=== PATIENT | male | born 1955 | race Caucasian/White ===

== ENCOUNTER 2018-04-08 18:09 | Inpatient (IN) | payer OTHER, SELFPAY ==
[2018-04-08 18:11] VITALS: BP 128/83; PULSE 120; RESP 23; TEMP 36.5; O2SAT 97; BMI 16.7
--- NOTE | 2018-04-08 18:33 | RAD_ITS ---
STUDY: X-RAY CHEST REASON FOR EXAM: Male, 62 years old. Generalized illness. History of lung cancer with metastasis. TECHNIQUE: Single AP portable view of the chest. COMPARISON: None. FINDINGS: Focal opacity of the left costophrenic angle. Otherwise the left lung is generally clear without major consolidation. Negative for substantial pleural effusion. On the right there is a generalized broad area of mass density in the right hilum and right paramediastinal region of the upper chest. There is diffuse mild to moderate opacification of the lung parenchyma in the right upper lobe, right middle lobe and more so at the right lung base. Probable right pleural effusion. Normal size heart. Broad mediastinum. There is atherosclerotic calcification of the aortic arch . Normal visualized thoracic spine. Normal visualized ribs, clavicles, and shoulders. There is no demonstrated abnormality of the visualized soft tissue structures of the upper abdomen. RAD/Chest 1 View (Portable) IMPRESSION: Focal consolidation or pleural-based lesion of the left costophrenic angle. Otherwise the left lung is generally expanded and clear. Mass density of the right hilum, right paramediastinal mass density and a broad mediastinum. Multifocal areas of parenchymal opacification of the right lung more notably at the right lung base and a probable right pleural effusion. Normal cardiac size. Electronically Signed: Agueda Lezama MD at 19:36 EDT , Service support ,
--- NOTE | 2018-04-08 18:37 | ED.VISSUMM ---
- ER Visit Summary Date of Service: 04/08/18 Chief Complaint: [] Generalized weakness, history of cancer with metastases History of Present Illness: The patient is a 62 M [] presents with generalized weakness and dehydration. Patient presents with friend and family member. Family member reports the patient was diagnosed with lung cancer with a history of diastasis to the brain. They report he has not been eating or drinking. He reportedly got his first chemotherapy treatment last week. Patient is a poor historian. He is confused during questioning. He reports mild abdominal pain. No other complaints at this time. Physical Examination: [] 62-year-old cachectic male no acute distress. Tachycardic. Lungs are clear to auscultation. Abdomen is diffuse mild tenderness. No guarding or rebound. No lower extremity edema. Test Results: [] Chest x-ray: Right lung mass consistent with previous images with static presentation. CT abdomen/pelvis without contrast: No signs of obvious obstruction with enlarged pancreas. Labs: White blood cell count elevated 46.9. Sodium low at 126. Alk phos at 1017. ALT 128. AST 222. Lipase 107. Lactic acid 5.0. Emergency Department Course and Treatment: [] Patient given intravenous fluids, Dilaudid, Phenergan. On serial exam had improvement of symptoms. Lab values reveal a elevated lactic acid and transaminases. Case discussed with oncologist, , and hospitalist, Dr. Ho. Patient will be admitted to the general medical floor. Patient is a DNR-CCA. Treatment Plan: [] Admit to general medical floor for fluids, functional decline, treatment of cancer with metastases. Disposition: [] Admit, stable. Impression: [] Lung cancer with metastases Abdominal pain Lactic acidosis DNR-CCA This note was generated with Personal [employer] software. It may contain incorrect words, spelling, and punctuation that were not noted in review of the chart prior to signing ED Disposition - Plan for ED Patient: Chief Complaint: General Illness
[2018-04-08 18:44] LABS: Mean Corp Hgb Conc 34.1 g/gl (32-36); Mean Corpuscular Hgb 29.2 pg (27.0-32.0); Mean Corpuscular Volume 85.6 fL (80-94); Mean Platelet Vol. 10.6 fl (6.2-12.0); Platelet Count 140 K/mm3 (150-450); RBC Distribution Width CV 14.5 % (11.6-14.6); RBC Distribution Width SD 44.7 fl (35.1-43.9); Red Blood Count 4.79 M/mm3 (4.6-6.2)
[2018-04-08 18:45] LABS: Differential Indicated MANUAL DIFF; POSITIVE COUNT YES; POSITIVE DIFFERENTIAL YES; POSITIVE MORPHOLOGY YES
[2018-04-08 18:47] LABS: White Blood Count 46.9 K/mm3 (4.4-11.0)
--- NOTE | 2018-04-08 18:48 | ED.RN ---
PT WBC 46.9. DR RESTREPO
[2018-04-08] MEDS: HYDROmorphone 1 MG/ML Syringe IV (18:50)
[2018-04-08] MEDS: 0.9% Normal Saline 1,000 ML 999 ML IV ×3 (18:50→23:43)
[2018-04-08] MEDS: proMETHazine 25 MG/ML Syringe 6.25 MG IV (18:50)
--- NOTE | 2018-04-08 19:00 | CT_ITS ---
STUDY: CT ABDOMEN AND PELVIS WITHOUT CONTRAST REASON FOR EXAM: Male, 62 years old. Abdominal pain and weakness. History of lung cancer with metastasis to the brain, lymph nodes and bone. RADIATION DOSAGE (If Supplied By Facility): CTDIvol = ( 6.04 ) mGy, DLP = ( 323.17 ) mGycm TECHNIQUE: Transaxial images were obtained from the dome of the diaphragm to the symphysis pubis without oral contrast, and without intravenous contrast. Sagittal and coronal images were reconstructed. Individualized dose optimization techniques were used for this CT. COMPARISON: None. FINDINGS: Moderate-sized dependent right pleural effusion. Loculated fluid collection in the oblique fissure. Parenchymal consolidation of the lateral left lower lobe, pleural-based without a substantial left pleural effusion. 5 mm nodule of the lingula. Hepatomegaly with extensive metastatic disease. Normal gallbladder and extrahepatic biliary system. Normal spleen. The pancreas appears diffusely enlarged or is not separable from the marked adenopathy of the upper abdomen and retroperitoneum. The right adrenal gland is not visualized as a normal structure. Probable mass density of the left adrenal gland. 1.3 cm low-density lesion of the right kidney. Otherwise normal right kidney without hydronephrosis or stones. Normal left kidney without hydronephrosis or stones. Nondistended stomach. Nondistended small bowel. Nonspecific moderate increase in colonic bowel gas in nondependent loops. The appendix is visualized and appears normal. There is diffuse atherosclerotic calcification of the abdominal aorta, without a demonstrated aneurysm. Normal inferior vena cava. Retroperitoneal adenopathy including soft tissue nodules in the posterior retroperitoneum/pararenal spaces. Normal urinary bladder. Generalized anasarca and moderate ascites. There appears to be a healing fracture of the right superior pubic ramus at the anterior acetabulum, possibly pathologic. CT/Abdomen/Pelvis without Cont IMPRESSION: Somewhat limited study in this cachectic patient with little or no intrinsic fat, oral or IV contrast. Moderate size dependent right pleural effusion and fluid in the oblique fissure. Irregular parenchymal consolidation of the lateral segment of the left lower lobe, possibly metastatic involvement. 5 mm nodule of the lingula. Hepatomegaly with extensive metastatic disease. The pancreas appears to be generally enlarged or is inseparable from extensive upper abdominal and retroperitoneal adenopathy including nodules in the posterior retroperitoneum and pararenal spaces. Mesenteric adenopathy not excludable. Nonvisualized right adrenal gland. Mass density of the left adrenal gland likely to be metastatic disease. Normal size kidneys without hydronephrosis or stones. Probable small cyst of the right kidney. Nondistended stomach without evidence of small bowel or colonic obstruction. Nonspecific moderate increase in colonic bowel gas in nondependent loops. A normal air-filled appendix is identified. Nondistended urinary bladder. There appears to be a lesion of the base of the right superior pubic ramus at the anterior acetabulum which looks like a healing fracture, possibly pathologic. Otherwise grossly negative for osteolytic bone lesions. Electronically Signed: Agueda Lezama MD at 20:18 EDT , Service support ,
[2018-04-08 19:05] LABS: Eosinophil 9 % (0-5); Lymphocyte 7 % (19-41); Metamyelocyte 3 % (0-1); Myelocyte 1 (0-0); Neutrophil-Band 26 % (0-5); Total Cells Counted 100 (MANUAL DIFF)
[2018-04-08 19:07] LABS: Differential Comment SEE COMMENTS; Monocyte 8 % (0-10); Neutrophil-Segmented 46 % (47-70)
[2018-04-08 19:10] LABS: Absolute Lymphocyte Count 3.28 X10^3/ul (0.83-4.51); Absolute Neutrophil Count 33.8 X10^3/uL (2.0-7.7); Platelet Estimate ADEQUATE (ADEQ)
[2018-04-08 19:11] LABS: Toxic Granulation 2+
[2018-04-08 19:12] LABS: Anisocytosis RARE; Ovalocyte RARE
[2018-04-08 19:25] LABS: ALB/GLOB Ratio 0.5 RATIO (0.9-2.4); AST(SGOT) 222 U/L (15-37); Alanine Aminotransfer ALT/SGPT 128 U/L (16-61); Alkaline Phosphatase 1017 U/L (45-117); Anion Gap 12 (5-15); BUN 22 mg/dL (7-18); BUN/Creat Ratio 25.1 RATIO (10-20); Calcium,Total 8.4 mg/dL (8.5-10.1); Chloride 90 mmol/L (98-107); Creatinine, Serum 0.88 mg/dL (0.70-1.30); EST Glomerular Filtration Rate 93 mL/min (>60); Est Glom Filt Rate - Afr Amer 113 mL/min (>60); Estimated Creatinine Clearance 60.64 ml/min; Glucose 140 mg/dL (74-106); Lipase 107 U/L (73-393); Potassium 4.8 mmol/L (3.5-5.1); Sodium Level 126 mmol/L (136-145)
--- NOTE | 2018-04-08 19:38 | ED.RN ---
LAB CALLED WITH CRITICAL LAB RESULTS. LACTIC ACID 5.0. DR. ALVARADO MADE AWARE. NO NEW ORDERS AT THIS TIME
[2018-04-08 20:10] VITALS: BP 99/73; PULSE 112; RESP 15; TEMP 37.1; O2SAT 94
--- NOTE | 2018-04-08 20:55 | PCM.HP.STD ---
Problem List (1) Metastatic lung cancer (metastasis from lung to other site) Status: Acute (2) Lactic acid acidosis Status: Acute (3) Abdominal pain Status: Acute History of Present Illness Date of Admission: 04/08/18 Chief Complaint: Generalized weakness The patient is a 62 year old male w/ h/o lung cancer with mets admitted for generalized weakness. He is a poor historian and was recently diagnosed with lung cancer with mets to the brain and abdominal area. He had chemo last week but after treatment, he had poor PO intake. He has not been able to care for himself at home. He has been getting weaker. His weakness is constant and severe. Nothing made his weakness better or worse. He also has been having abdominal pain. Pain is constant and dull aching. No radiation of pain. He went to ED for further workup. Past Medical History Allergies No Known Allergies Allergy (Verified 04/08/18 18:16) Home Medications: Ambulatory Orders Medication Instructions Recorded Fluconazole 100 mg PO DAILY 04/08/18 Levetiracetam [Spritam] 1,000 mg PO BID 04/08/18 Morphine Sulfate [Morphine Sulfate 15 mg PO BID 04/08/18 ER] Lives: Friends Smoking Status: Former smoker Alcohol: None Drugs: None - *Family History Maternal History Items: No pertinent history Review of Systems Constitutional: Reports: Anorexia, Weakness, Fatigue. Denies: Chills, Fever, Weight Change HEENT: Denies: Head Aches, Sinus Congestion, Sinus Drainage Cardiovascular: Denies: Chest Pain, Palpitations Respiratory: Denies: Cough, Shortness of breath at rest, Sputum production Gastrointestinal: Reports: Abdominal Pain. Denies: Nausea, Vomiting Genitourinary: Denies: Dysuria Musculoskeletal: Denies: Joint Pain, Joint Tenderness Skin: Denies: Rash, Wounds Neurological: Denies: Numbness, Tingling, Focal weakness Psychiatric: Denies: Anxiety, Depression, Homicidal Ideations, Suicidal Ideations Hematologic/ Lymphatic: Denies: Easy Bruising, Easy Bleeding VTE Information - Inpt Only VTE Present on Admission: No VTE Mechan Device Prophylaxis: SCD's VTE Pharm Prophylaxis ordered?: Yes Patient Problems: Active and Suspected Problems Metastatic lung cancer (metastasis from lung to other site) (Acute) Lactic acid acidosis (Acute) Abdominal pain (Acute) - Physical Exam General: Alert, Oriented x3, Cooperative HEENT: Atraumatic, PERRLA, EOMI, Normocephalic Neck: Supple, No JVD, Negative Carotid Bruits Lungs: Clear to auscultation, Normal air movement Cardiovascular: Regular rate, No murmurs Abdomen: Bowel Sounds Present, Soft, Non Tender Extremities: No edema, Capillary Refill Less than 3 Seconds Skin: No rashes, No breakdown Musculoskeletal: No Tenderness to Palpation of Joints or Extremities Neurological: Cranial nerves II-XII grossly intact Psych/Mental Status: Normal Affect, Appropriate Vital Signs Temp Pulse Resp BP Pulse Ox 98.8 F 112 H 15 99/73 94 04/08/18 20:10 04/08/18 20:10 04/08/18 20:10 04/08/18 20:10 04/08/18 20:10 Oxygen Flow Rate (L/min) 4 Oxygen Delivery Method Nasal Cannula Weight: 49.895 kg Body Mass Index (BMI) 16.7 Laboratory Tests Past 24 Hrs 04/08/18 04/08/18 04/08/18 18:22 18:22 18:46 WBC 46.9 H* RBC 4.79 Hgb 14.0 Hct 41.0 MCV 85.6 MCH 29.2 MCHC 34.1 RDW 14.5 RDW Differential 44.7 H Plt Count 140 L MPV 10.6 Neut % (Auto) Not Reportable Absolute Neuts (auto) 33.8 H Absolute Lymphs (auto) 3.28 Total Counted 100 Neutrophils % (Manual) 46 L Band Neutrophils % 26 H Lymphocytes % (Manual) 7 L Monocytes % (Manual) 8 Eosinophils % (Manual) 9 H Metamyelocytes % 3 H Myelocytes % 1 H Differential Comment SEE COMMENTS Diff Path Review May foll Toxic Granulation 2+ Platelet Estimate ADEQUATE Anisocytosis RARE Ovalocytes RARE Sodium 126 L Potassium 4.8 Chloride 90 L Carbon Dioxide 24.0 Anion Gap 12 BUN 22 H Creatinine 0.88 Estim Creat Clear Calc 60.64 Est GFR (MDRD) Af Amer 113 Est GFR (MDRD) Non-Af 93 BUN/Creatinine Ratio 25.1 H Glucose 140 H Lactic Acid 5.0 H* Calcium 8.4 L Total Bilirubin 1.10 H AST 222 H ALT 128 H Alkaline Phosphatase 1017 H Total Protein 6.0 L Albumin 2.0 L Globulin 4.0 Albumin/Globulin Ratio 0.5 L Lipase 107 Assessment/Plan Active and Suspected Problems Metastatic lung cancer (metastasis from lung to other site) (Acute) Lactic acid acidosis (Acute) Abdominal pain (Acute) 62 year old male w/ h/o lung cancer with mets admitted for generalized weakness. 1) Generalized weakness: Most likely secondary to lung cancer with mets and chemo. Supportive care. Hydration. 2) NSTEMI: Trop 1.8 Possible type II OR secondary to hypotension. Will hold betablocker. Hold statin as well given concerning for transaminitis. Will start heparin gtt. Will follow trops. Will consult cards. 3) Leukocytosis: Possible paraneoplastic leukemoid reaction vs chemo. No e/o infection at this time. Lactic acidosis improving. Will get cultures. Monitor. 4) Lactic acidosis: Improving. Hydration. Supportive care. 5) Prophylaxis: SCD / heparin
[2018-04-08 21:59] VITALS: BMI 16.9
[2018-04-08 22:10] VITALS: BMI 17.0
[2018-04-08 22:12] VITALS: BP 86/62; PULSE 119; RESP 24; TEMP 36.8; O2SAT 95
[2018-04-08 22:43] VITALS: PULSE 125
[2018-04-08 22:59] LABS: Reflex Lactate? Y
[2018-04-08] MEDS: 0.9% NaCl Peripheral Flush Adult/Peds IV (23:03)
[2018-04-08] MEDS: 0.9% Normal Saline 1,000 ML 150 ML IV (23:03)
[2018-04-08] MEDS: morphine SR 15 MG Tablet PO (23:29)
[2018-04-08] MEDS: Magnesium Hydroxide 30 ML UDC PO (23:29)
[2018-04-08 23:40] VITALS: O2SAT 93
[2018-04-08] MEDS: levETIRAcetam Oral Solution 500 MG/5 ML 1000 MG PO (23:43)
[2018-04-08 23:47] LABS: Lactic Acid 3.4 mmol/L (0.4-2.0)
[2018-04-09] VITALS (11 sets, daily range): BP systolic 102–119; BP diastolic 67–74; PULSE 85–117; RESP 20–26; TEMP 36.3–37.2; O2SAT 95–97
[2018-04-09] MEDS: 0.9% Normal Saline 1,000 ML 999 ML IV (00:50)
--- NOTE | 2018-04-09 01:20 | EKG12_ITS ---
Test Reason : AM EKG Blood Pressure : / mmHG Vent. Rate : 112 BPM Atrial Rate : 112 BPM P-R Int : 112 ms QRS Dur : 134 ms QT Int : 364 ms P-R-T Axes : 067 109 045 degrees QTc Int : 496 ms Sinus tachycardia with Premature supraventricular complexes Right bundle branch block Abnormal ECG Confirmed by JENY BENSON, RITA ([id number]), food editor BRITTA HARRIS ([id number]) on 04/18/2018 3:24:54 PM Referred By: XUAN Confirmed By:RITA FERMIN MD
--- NOTE | 2018-04-09 01:58 | NURSING ---
Made aware by another RN that pt was having chest pain, that RN contacted the DR, see orders.
[2018-04-09] MEDS: 0.9% NaCl Peripheral Flush Adult/Peds IV (02:07)
[2018-04-09] MEDS: Morphine 4 MG/ML Syringe 2 MG IV ×3 (02:10→12:14)
--- NOTE | 2018-04-09 02:52 | NURSING ---
Report called to PCU. Patient being transferred at this time, Troponin came back at 1.8
--- NOTE | 2018-04-09 03:19 | NURSING ---
patient states cp is subsiding, unable to give RN answer on how it feels or rate it.
[2018-04-09] MEDS: Aspirin 325 MG Tablet PO (03:24)
[2018-04-09] MEDS: HEPARIN/D5w 25,000 UNITS 25,000 UNITS/250 ML IV.SOLN. 8 UNITS IV (03:34)
[2018-04-09] MEDS: Heparin Injection (Vial) 5,000 UNIT/ML VIAL 4000 UNIT IV (03:34)
[2018-04-09 03:48] LABS: Partial Thromboplast Time 38.8 Seconds (24.1-36.2); Prothrombin Time (Protime)PT. 23.1 SECONDS (11.7-14.9)
[2018-04-09 06:39] LABS: Anion Gap 9 (5-15); BUN 19 mg/dL (7-18); BUN/Creat Ratio 28.8 RATIO (10-20); Calcium,Total 7.4 mg/dL (8.5-10.1); Chloride 99 mmol/L (98-107); Creatinine, Serum 0.66 mg/dL (0.70-1.30); EST Glomerular Filtration Rate 130 mL/min (>60); Est Glom Filt Rate - Afr Amer 157 mL/min (>60); Estimated Creatinine Clearance 87.01 ml/min; Glucose 106 mg/dL (74-106); Potassium 4.7 mmol/L (3.5-5.1); Sodium Level 131 mmol/L (136-145)
[2018-04-09 07:12] LABS: Hematocrit 35.4 % (40-54); Hemoglobin 12.1 g/dl (13.0-16.5); Mean Corp Hgb Conc 34.2 g/gl (32-36); Mean Corpuscular Hgb 29.4 pg (27.0-32.0); Mean Corpuscular Volume 86.1 fL (80-94); Mean Platelet Vol. 10.9 fl (6.2-12.0); Platelet Count 134 K/mm3 (150-450); RBC Distribution Width CV 14.5 % (11.6-14.6); RBC Distribution Width SD 44.2 fl (35.1-43.9); Red Blood Count 4.11 M/mm3 (4.6-6.2)
[2018-04-09 07:16] LABS: Differential Indicated MANUAL DIFF; POSITIVE COUNT YES; POSITIVE DIFFERENTIAL YES; POSITIVE MORPHOLOGY YES
--- NOTE | 2018-04-09 07:17 | ECHOD_ITS ---
Reason For Study: S/P [place] Procedure This was a 2D Doppler, Color Flow transthoracic echocardiogram. Technically difficult study. Patient was unable to stay still or remain in desired position for optimal images. Exam performed portable in patient room. Left Ventricle Normal LV size. The estimated ejection fraction is 50 %. Left ventricular systolic function is lower limits of normal. Transmitral diastolic flow velocities suggest mild (stage 1) diastolic dysfunction (reversed pattern). No regional wall motion abnormalities noted. Right Ventricle Normal RV size. Normal systolic function. Atria Normal left atrium. Normal right atrium. Mitral Valve Normal mitral valve. Trivial eccentric mitral valve insufficiency. Tricuspid Valve Normal tricuspid valve. Mild to moderate (1-2+) tricuspid valve insufficiency. Pulmonary artery systolic pressure is 50 mmHg. Aortic Valve Trisinus/trileaflet aortic valve. Trivial eccentric aortic valve insufficiency. Pulmonic Valve Normal pulmonic valve. Great Vessels Normal aortic root. The pulmonary artery is normal size. Normal inferior vena cava. Pericardium/Pleural Small pericardial effusion. MMode/2D Measurements & Calculations LVIDd: 4.4 cm IVSd: 0.88 cm Ao root diam: 3.5 cm LVIDs: 3.0 cm LVPWd: 1.1 cm LA dimension: 2.8 cm FS: 31.4 % Time Measurements MV dec time: 0.19 sec Doppler Measurements & Calculations MV E max quin: 48.9 cm/sec MV V2 max: 80.9 cm/sec MV P1/2t max quin: 59.2 cm/sec MV A max quin: 64.7 cm/sec MV max P.6 mmHg MV P1/2t: 59.7 msec MV E/A: 0.76 MV V2 mean: 40.3 cm/sec MV dec slope: 290.1 cm/sec2 MV mean P.78 mmHg MVA(P1/2t): 3.7 cm2 MV V2 VTI: 14.7 cm TR max quin: 341.4 cm/sec TR max P.6 mmHg Interpretation Summary Normal LV size. The estimated ejection fraction is 50 %. Left ventricular systolic function is lower limits of normal. Transmitral diastolic flow velocities suggest mild (stage 1) diastolic dysfunction (reversed pattern). Mild to moderate (1-2+) tricuspid valve insufficiency. Pulmonary artery systolic pressure is 50 mmHg. Small pericardial effusion. Ordering Physician: Rom Goldberg Referring Physician: ZOË PCP Performed By: Bhanu Cervantes RCS
--- NOTE | 2018-04-09 07:19 | CON.PCM_ITS ---
Reason for Consult Date of Consultation: 04/09/18 Reason for Consultation: Abnormal cardiac enzymes History of Present Illness: The patient is a 62 year old M with a history of recently diagnosed metastatic lung carcinoma who was brought into the hospital due to generalized weakness. He says that he was given a chemotherapeutic treatment last week and has started feeling weak since then. He had had some right-sided chest discomfort. He was admitted to the medical surgical unit with hydration and blood work was done and it was noted that he had an abnormal cardiac enzyme. He denies any chest pain now no shortness of breath no paroxysmal nocturnal dyspnea or pedal edema. At this particular time he appears to be doing well. [] Past Medical History Allergies/Adverse Reactions: Allergies No Known Allergies Allergy (Verified 04/08/18 18:16) Home Medications: Ambulatory Orders Medication Instructions Recorded Fluconazole 100 mg PO DAILY 04/08/18 Levetiracetam [Spritam] 1,000 mg PO BID 04/08/18 Morphine Sulfate [Morphine Sulfate 15 mg PO BID 04/08/18 ER] - *Family History Maternal History Items: No pertinent history Lives: Friends Smoking Status: Former smoker Alcohol: None Drugs: None Review of Systems - Review of Systems General: Reports: Fatigue, Malaise, Weakness. Denies: Fever, Night Sweats Cardiovascular: Denies: Chest Discomfort, Shortness of Breath, Orthopnea, PND, Peripheral Edema, Palpitations, Lightheadedness, Dizziness, Near Syncope, Syncope Respiratory: Denies: Cough, Sputum Production, Hemoptysis Gastrointestinal: Denies: Hematemesis, Hematochezia, Melena Genitourinary: Denies: Dysuria, Hematuria Skin: Denies: Rash Subjectve: Pleasant gentleman in no apparent distress Objective: Vital Signs Temp Pulse Resp BP Pulse Ox 98.5 F 114 H 20 H 119/71 97 04/09/18 03:20 04/09/18 03:30 04/09/18 03:20 04/09/18 03:20 04/09/18 03:20 Oxygen Flow Rate (L/min) 3 Oxygen Delivery Method Nasal Cannula Weight: 118 lb 6.212 oz Body Mass Index (BMI) 16.9 Intake and Output for Last 24 Hours 04/07/18 04/08/18 04/09/18 23:59 23:59 23:59 Intake Total 338 / 338 2510 / 2510 Output Total 125 / 125 Balance 338 / 338 2385 / 2385 General: Awake, Alert, Oriented x 3 HEENT: PERRL, EOMI, Sclera Non Icteric Neck: Supple, Good ROM, No Lymph Node Enlargement Lungs: Clear to auscultation Cardiovascular: Regular Rhythm, Normal S1, Normal S2, No Murmurs, No Rubs, No Gallops Vascular: No Carotid Bruits, Normal Femoral Pulses, Normal Radial Pulses, Normal Dorsalis Pedal Pulse, Normal Posterior Tibial Pulses Abdomen: Bowel Sounds Present, Soft, Non Tender, No HSM, No Organomegaly Extremities: No Cyanosis, No Clubbing, No edema Neurological: No Focal Motor or Sensory Deficit 04/08/18 22:50: Lactic Acid 3.4 H 04/09/18 01:50: Troponin I 1.800 H* 04/09/18 03:34: PT 23.1 H, INR 2.0, APTT 38.8 H 04/09/18 03:34: Troponin I 1.820 H* 04/09/18 05:50: WBC 47.6 H*, RBC 4.11 L, Hgb 12.1 L, Hct 35.4 L, MCV 86.1, MCH 29.4, MCHC 34.2, RDW 14.5, RDW Differential 44.2 H, Plt Count 134 L, MPV 10.9, Neut % (Auto) Not Reportable, Absolute Neuts (auto) Not Reportable 04/09/18 05:50: Sodium 131 L, Potassium 4.7, Chloride 99, Carbon Dioxide 23.0, Anion Gap 9, BUN 19 H, Creatinine 0.66 L, Est GFR (MDRD) Af Amer 157, Est GFR ( MDRD) Non-Af 130, BUN/Creatinine Ratio 28.8 H, Glucose 106, Calcium 7.4 L, Troponin I 2.210 H* Rhythm: EKG: Sinus tachycardia with a rate of 124 bpm Assessment/Plan 1. Non-ST elevation myocardial infarction. Patient has a history of metastatic lung carcinoma and develops abnormal cardiac enzymes within a week of receiving his chemotherapeutic regimen. It is not clear whether this is secondary to the medication or a primary coronary problem. My recommendation at this time would be to manage conservatively with low-dose beta-eben as well as Plavix and aspirin. I do not think that at this time we should pursue invasive therapy. I will discuss with the oncologist what his overall prognosis is. An echocardiogram should be performed to assess his left ventricular function. Thank you for allowing me to participate in the care of your patient. Please don't hesitate to call if any issues arise
[2018-04-09 07:23] LABS: White Blood Count 47.6 K/mm3 (4.4-11.0)
[2018-04-09 07:39] LABS: Eosinophil 16 % (0-5); Lymphocyte 1 % (19-41); Metamyelocyte 4 % (0-1); Monocyte 3 % (0-10); Neutrophil-Band 50 % (0-5); Neutrophil-Segmented 26 % (47-70); Total Cells Counted 100 (MANUAL DIFF)
[2018-04-09 07:41] LABS: Absolute Lymphocyte Count 0.48 X10^3/ul (0.83-4.51); Absolute Neutrophil Count 38.1 X10^3/uL (2.0-7.7); Lymphocyte # 0.48 X10^3/ul (4.0); Neutrophil # 38.08 X10^3/uL (2.7-7.7)
[2018-04-09 07:42] LABS: Platelet Estimate SLT DEC (ADEQ)
[2018-04-09 07:43] LABS: Anisocytosis 1+; Crenated RBC RARE
[2018-04-09] MEDS: 0.9% Normal Saline 1,000 ML 150 ML IV (08:47)
[2018-04-09] MEDS: morphine SR 15 MG Tablet PO (08:51)
[2018-04-09] MEDS: Metoprolol Tartrate 25 MG Tablet 12.5 MG PO (08:51)
[2018-04-09] MEDS: Aspirin 81 MG TAB.CHEW PO (08:51)
[2018-04-09] MEDS: levETIRAcetam Oral Solution 500 MG/5 ML 1000 MG PO (08:51)
[2018-04-09 09:21] LABS: Partial Thromboplast Time 36.4 Seconds (24.1-36.2)
--- NOTE | 2018-04-09 10:58 | ONC.CON.INP2 ---
- Problem List (1) Metastatic lung cancer (metastasis from lung to other site) Status: Acute Consult Referring Physician: Dr. Child Subjective Chief Complaint: weakness History of Present Illness: Diagnosis: 1) Metastatic NSCLC. ? HPI: Patient is a 62-year-old male who has a past medical history significant for [id number] history of smoking, hypertension and hyperlipidemia. ? The patient fell about 5 feet from the back of his tractor trailer when he was unloading in [facility]. He is done this routine an number of times. He does not remember stumbling or falling or blacking out. He just knows he was on the back of the truck and he said the next thing he knew he woke up and [facility]. He suffered trauma including grade 3 liver laceration and pelvic fracture as well as right radius fracture in left temporal intracranial hemorrhage. He underwent reduction and internal fixation of the radius fracture. There was an incidental discovery of a cavitary mass of the right upper lobe on chest x-ray. ? CT of the chest performed on 02/13/2018 demonstrated a mostly solid centrally necrotic mass within the right upper lobe measuring 3.5 x 3.4 cm. There was air space infiltration of the surrounding lung parenchyma. The mass exerted and appear to occlude portions of the right upper lobe bronchi. Areas of groundglass opacity noted distal to the mass more superiorly within the right upper lobe were thought to possibly represent postobstructive pneumonitis. There were multiple, markedly enlarged right hilar mediastinal lymph nodes the largest of which appear to be a conglomerate of mediastinal and right hilar lymph nodes measuring up to 6.7 x 3.0 cm. The conglomerate lymphadenopathy appeared to severely narrowed branch of the right upper lobe pulmonary artery. The most superior enlarged lymph node was a right paratracheal lymph node measuring 1.7 cm. There was a 4 mm nodule in the right upper lobe and a second 4 mm nodule within the posterior aspect of the right upper lobe. A third, adjacent 4 mm nodule within the right upper lobe was also observed. And finally there was a 3 mm nodule within the right lower lobe. There was a sclerotic lesion noted within the right transverse process at T4. Multiple remote rib fractures were noted on the right. ? CT of the brain on 02/20/2018 demonstrated stable sized left temporal subdural hematoma with increased surrounding edema. There were unchanged small subdural hematomas. ? Patient underwent bronchoscopy on 02/20/2018. Transbronchial FNA of lymph node 4R demonstrated malignant cells consistent with non-small cell carcinoma favoring adenocarcinoma. PDL 1 was 100% expression. An Oncomine DX test was sent but the specimen did not pass quality-control checks and therefore was not run. ? He quit smoking when he was admitted to the hospital. He previously smoked a pack a day for about 40 years. He was drinking about 2 beers a day but hasn't been drinking in the last couple weeks. MRI of the brain revealed at least 7 parenchymal brain metastases. ? Had PET scan at the [facility] on 03/28/2018. It unfortunately revealed widespread metastases throughout the chest, abdomen (liver) and bones. Recieved one dose Keytruda last week. patient has had a declining performance status over the last 2 weeks. He was brought to the emergency room last night by his partner. She observed him to become increasingly lethargic and weak over the last week. He hasn't been eating or drinking very well. He was found to have marked leukocytosis with no fever. Lactic acid elevated. Blood pressure okay but tachycardic. Patient has been admitted. He's not yet treated with antibiotics. He is confused and restless. Other labs are notable increase in hepatocellular enzymes as well as bilirubin. INR is increased. Past Medical/Surgical History: Past Medical History - Most Recent Inpatient Visit Past Medical History Start: 04/08/18 21:56 Text: Status: Complete Freq: ONCE Protocol: Document 04/08/18 22:10 CDS (Rec: 04/08/18 22:11 CDS [id number]) BMI Required to complete PMH What is Patient's BMI 17.0 Past Medical History Unable History Recalled Yes: No family present, pt not Query Text:Pt Unable/Family Not Present oriented at this time. Cardiac Medical History VTE Present on Admission No Hx Hypertension No Respiratory Medical History Smoking Status Former smoker Hx Tobacco Use in last 12 months Yes Sent to [facility] Yes Hx Sleep Apnea No Do you snore loudly (louder than talking No or can be heard through closed doors)? Do you often feel tired/ fatigued/ No sleepy during daytime? Has anyone observed you stop breathing No during sleep? STOP Results Negative Genitourinary Medical History Indwelling Catheter in Place on Arrival/ No Admission Hematologic Medical History Hx of Blood Transfusion No Hx of Transfusion in last 3 Months No Ever experience any problems with No transfusion(s)? Hx of Preganancy in last 3 Months N/A Nurse Filling Out Transfusion & CSNYDER Questions: Date: 04/08/18 Time: 22:11 Psycho/Social Medical History Hx Alcohol Use Yes: STOPPED IN 03/07 Other Medical History Wound/Pressure Injury Present on Arrival No /Admission Query Text:If yes, chart assessment in Shift/Clinical Findings Central Line/PICC/VAD Present on Arrival No /Admission Risk for Readmission Number of Risk Factors 1 At Risk for Readmission Patient is Not at Risk Patient is eligible for Call Back N Maternal Family History: No pertinent history - Social History Lives: Friends Smoking Status: Former smoker Alcohol: None Drugs: None Allergies/Adverse Reactions: Allergy/AdvReac Type Severity Reaction Status Date / Time No Known Allergies Allergy Verified 04/08/18 18:16 Home Medications Medication Instructions Recorded Fluconazole 100 mg PO DAILY 04/08/18 Levetiracetam [Spritam] 1,000 mg PO BID 04/08/18 Morphine Sulfate [Morphine Sulfate 15 mg PO BID 04/08/18 ER] Review of Systems Constitutional:: Reports: Weakness, Fatigue, Weight loss Respiratory: Reports: Cough, Sputum production Musculoskeletal:: Reports: - - Patient has severe pelvic pain secondary to diffuse pelvic bony involvement. Vital Signs Height 1.78 m Weight: 53.7 kg Weight in Pounds 118.4 lbs Pulse Ox 96 Temperature 97.4 F Pulse Rate 101 Respiratory Rate 20 Blood Pressure 110/67 Blood Pressure Position Semi-Fowlers - Physical Exam General: Confused Oropharynx:: - - Dry mucosa Cardiac:: Regular rhythm Lungs: - - fairly clear with passive respirations. Abdomen:: Hepatomegaly Extremities:: - - he has significant muscle wasting. Laboratory Data: Laboratory Tests 04/09/18 04/09/18 04/09/18 Range/Units 09:05 09:05 05:50 WBC (4.4-11.0) K/mm3 RBC (4.6-6.2) M/mm3 Hgb (13.0-16.5) g/dl Hct (40-54) % MCV (80-94) fL MCH (27.0-32.0) pg MCHC (32-36) g/gl RDW (11.6-14.6) % RDW Differential (35.1-43.9) fl Plt Count (150-450) K/mm3 MPV (6.2-12.0) fl Neut % (Auto) Absolute Neuts (auto) (2.0-7.7) X10^3/uL Absolute Lymphs (auto) (0.83-4.51) X10^3/ul Total Counted (MANUAL DIFF) Neutrophils % (Manual) (47-70) % Band Neutrophils % (0-5) % Lymphocytes % (Manual) (19-41) % Monocytes % (Manual) (0-10) % Eosinophils % (Manual) (0-5) % Metamyelocytes % (0-1) % Diff Path Review Platelet Estimate (ADEQ) RBC Morphology Anisocytosis PT (11.7-14.9) SECONDS INR APTT 36.4 H (24.1-36.2) Seconds Sodium 131 L (136-145) mmol/L Potassium 4.7 (3.5-5.1) mmol/L Chloride 99 (98-107) mmol/L Carbon Dioxide 23.0 (21.0-32.0) mmol/L Anion Gap 9 (5-15) BUN 19 H (7-18) mg/dL Creatinine 0.66 L (0.70-1.30) mg/dL Estim Creat Clear Calc 87.01 ml/min Est GFR (MDRD) Af Amer 157 (>60) mL/min Est GFR (MDRD) Non-Af 130 (>60) mL/min BUN/Creatinine Ratio 28.8 H (10-20) RATIO Glucose 106 (74-106) mg/dL Lactic Acid (0.4-2.0) mmol/L Calcium 7.4 L (8.5-10.1) mg/dL Troponin I 2.370 H* 2.210 H* (<0.045) ng/mL 04/09/18 04/09/18 04/09/18 Range/Units 05:50 03:34 03:34 WBC 47.6 H* (4.4-11.0) K/mm3 RBC 4.11 L (4.6-6.2) M/mm3 Hgb 12.1 L (13.0-16.5) g/dl Hct 35.4 L (40-54) % MCV 86.1 (80-94) fL MCH 29.4 (27.0-32.0) pg MCHC 34.2 (32-36) g/gl RDW 14.5 (11.6-14.6) % RDW Differential 44.2 H (35.1-43.9) fl Plt Count 134 L (150-450) K/mm3 MPV 10.9 (6.2-12.0) fl Neut % (Auto) Not Reportable Absolute Neuts (auto) 38.1 H (2.0-7.7) X10^3/uL Absolute Lymphs (auto) 0.48 L (0.83-4.51) X10^3/ul Total Counted 100 (MANUAL DIFF) Neutrophils % (Manual) 26 L (47-70) % Band Neutrophils % 50 H (0-5) % Lymphocytes % (Manual) 1 L (19-41) % Monocytes % (Manual) 3 (0-10) % Eosinophils % (Manual) 16 H (0-5) % Metamyelocytes % 4 H (0-1) % Diff Path Review May foll Platelet Estimate SLT DEC (ADEQ) RBC Morphology RARE Anisocytosis 1+ PT 23.1 H (11.7-14.9) SECONDS INR 2.0 APTT 38.8 H (24.1-36.2) Seconds Sodium (136-145) mmol/L Potassium (3.5-5.1) mmol/L Chloride (98-107) mmol/L Carbon Dioxide (21.0-32.0) mmol/L Anion Gap (5-15) BUN (7-18) mg/dL Creatinine (0.70-1.30) mg/dL Estim Creat Clear Calc ml/min Est GFR (MDRD) Af Amer (>60) mL/min Est GFR (MDRD) Non-Af (>60) mL/min BUN/Creatinine Ratio (10-20) RATIO Glucose (74-106) mg/dL Lactic Acid (0.4-2.0) mmol/L Calcium (8.5-10.1) mg/dL Troponin I 1.820 H* (<0.045) ng/mL 04/09/18 04/08/18 Range/Units 01:50 22:50 WBC (4.4-11.0) K/mm3 RBC (4.6-6.2) M/mm3 Hgb (13.0-16.5) g/dl Hct (40-54) % MCV (80-94) fL MCH (27.0-32.0) pg MCHC (32-36) g/gl RDW (11.6-14.6) % RDW Differential (35.1-43.9) fl Plt Count (150-450) K/mm3 MPV (6.2-12.0) fl Neut % (Auto) Absolute Neuts (auto) (2.0-7.7) X10^3/uL Absolute Lymphs (auto) (0.83-4.51) X10^3/ul Total Counted (MANUAL DIFF) Neutrophils % (Manual) (47-70) % Band Neutrophils % (0-5) % Lymphocytes % (Manual) (19-41) % Monocytes % (Manual) (0-10) % Eosinophils % (Manual) (0-5) % Metamyelocytes % (0-1) % Diff Path Review Platelet Estimate (ADEQ) RBC Morphology Anisocytosis PT (11.7-14.9) SECONDS INR APTT (24.1-36.2) Seconds Sodium (136-145) mmol/L Potassium (3.5-5.1) mmol/L Chloride (98-107) mmol/L Carbon Dioxide (21.0-32.0) mmol/L Anion Gap (5-15) BUN (7-18) mg/dL Creatinine (0.70-1.30) mg/dL Estim Creat Clear Calc ml/min Est GFR (MDRD) Af Amer (>60) mL/min Est GFR (MDRD) Non-Af (>60) mL/min BUN/Creatinine Ratio (10-20) RATIO Glucose (74-106) mg/dL Lactic Acid 3.4 H (0.4-2.0) mmol/L Calcium (8.5-10.1) mg/dL Troponin I 1.800 H* (<0.045) ng/mL Diagnostic Data: Diagnostic Data Chest X-Ray 04/08/18 18:33 IMPRESSION: Focal consolidation or pleural-based lesion of the left costophrenic angle. Otherwise the left lung is generally expanded and clear. Mass density of the right hilum, right paramediastinal mass density and a broad mediastinum. Multifocal areas of parenchymal opacification of the right lung more notably at the right lung base and a probable right pleural effusion. Normal cardiac size. Electronically Signed: Agueda Lezama MD at 19:36 EDT , Service support , Abdomen/Pelvis CT 04/08/18 19:00 IMPRESSION: Somewhat limited study in this cachectic patient with little or no intrinsic fat, oral or IV contrast. Moderate size dependent right pleural effusion and fluid in the oblique fissure. Irregular parenchymal consolidation of the lateral segment of the left lower lobe, possibly metastatic involvement. 5 mm nodule of the lingula. Hepatomegaly with extensive metastatic disease. The pancreas appears to be generally enlarged or is inseparable from extensive upper abdominal and retroperitoneal adenopathy including nodules in the posterior retroperitoneum and pararenal spaces. Mesenteric adenopathy not excludable. Nonvisualized right adrenal gland. Mass density of the left adrenal gland likely to be metastatic disease. Normal size kidneys without hydronephrosis or stones. Probable small cyst of the right kidney. Nondistended stomach without evidence of small bowel or colonic obstruction. Nonspecific moderate increase in colonic bowel gas in nondependent loops. A normal air-filled appendix is identified. Nondistended urinary bladder. There appears to be a lesion of the base of the right superior pubic ramus at the anterior acetabulum which looks like a healing fracture, possibly pathologic. Otherwise grossly negative for osteolytic bone lesions. Electronically Signed: Agueda Lezama MD at 20:18 EDT , Service support , Assessment and Plan in summary the patient is a 59-year-old male who was recently diagnosed with widespread metastatic disease from non-small cell lung cancer. PD L1 expression was 100% so he received immunotherapy consisting of Keytruda last week. Despite that his performance status continues to decline in his KPS is 10-20%. he now has evidence of liver failure and likely progressing untreated brain metastases. He's had rapid progression of disease with marked drop in performance status over the last 3 weeks. I discussed this with his girlfriend as well as his son who has durable health care power of assistant city attorney. I recommended inpatient hospice care to which they're both agreeable. Medications: Prescriptions This Visit Medication Instructions Recorded Fluconazole 100 mg PO DAILY 04/08/18 Levetiracetam [Spritam] 1,000 mg PO BID 04/08/18 Morphine Sulfate [Morphine Sulfate 15 mg PO BID 04/08/18 ER] Medications Added to Medication List This Visit Category Date Time Status Aspirin [Aspirin, Baby] Med 04/09/18 08:00 Active 81 mg PO DAILY@0800 Atorvastatin Calcium [Lipitor] Med 04/09/18 22:00 Active 10 mg PO QHS Ensure Enlive Med 04/09/18 10:00 Active 120 ml PO 4X/DAY Heparin Injection Med 04/09/18 03:10 Active 0 units IV UD PRN Meropenem [Merrem] 500 mg Med 04/09/18 12:00 Active 0.9% Normal Saline 50 ml IV Q8 Metoprolol Tartrate [Lopressor (Beta July)] Med 04/09/18 10:00 Active 12.5 mg PO BID Primary Care Provider: No Primary Care Phys Referring Provider:
[2018-04-09 11:37] LABS: Pathologist Review Reviewed
[2018-04-09 11:41] LABS: Pathologist Review Reviewed
[2018-04-09] MEDS: Fluconazole 100 MG Tablet PO (12:13)
--- NOTE | 2018-04-09 13:30 | CASEMGMT ---
per Dr. Bell, he spoke with pt's girlfriend and son and recommended inpatient hospice and they agreed. CM assessment deferred at this time due to Hospice consult. CM to follow for any further questions/concerns/needs. Jame RADER CM
--- NOTE | 2018-04-09 13:54 | PCM.HP.ID ---
Problem List (1) Lactic acid acidosis Status: Acute Reason for Consult: leukocytosis Consulted by: Dr. Child History of Present Illness: The patient is a 62 year old M with recent dx of widely metastatic NSCLC, follows with Dr. Bell. Recently started on Keytruda, but taken to ED last night due to one week of progressive weakness, fatigue, poor po intake. Wbc up to 46, lactate up to 5. Abd CT and cxr done. Admitted, this AM started on meropenem for empiric coverage. Pt with some confusion. Denies abd pain. Stable cough. No fever. Full ROS performed and neg except as noted above. Still with headache since original fall. - Medical History Surgical History: reviewed Allergies/Adverse Reactions: Allergies No Known Allergies Allergy (Verified 04/08/18 18:16) Home Medications: Ambulatory Orders Medication Instructions Recorded Fluconazole 100 mg PO DAILY 04/08/18 Levetiracetam [Spritam] 1,000 mg PO BID 04/08/18 Morphine Sulfate [Morphine Sulfate 15 mg PO BID 04/08/18 ER] - Social History Tobacco Use: cigarettes Vital Signs Temp Pulse Resp BP Pulse Ox 97.4 F L 86 20 H 110/67 96 04/09/18 09:45 04/09/18 11:00 04/09/18 09:45 04/09/18 09:45 04/09/18 09:45 Oxygen Flow Rate (L/min) 3 Oxygen Delivery Method Nasal Cannula Weight: 53.7 kg Body Mass Index (BMI) 16.9 Laboratory Tests Past 24 Hrs 04/08/18 04/09/18 04/09/18 22:50 01:50 03:34 WBC RBC Hgb Hct MCV MCH MCHC RDW RDW Differential Plt Count MPV Neut % (Auto) Absolute Neuts (auto) Absolute Lymphs (auto) Total Counted Neutrophils % (Manual) Band Neutrophils % Lymphocytes % (Manual) Monocytes % (Manual) Eosinophils % (Manual) Metamyelocytes % Diff Path Review Platelet Estimate RBC Morphology Anisocytosis PT 23.1 H INR 2.0 APTT 38.8 H Sodium Potassium Chloride Carbon Dioxide Anion Gap BUN Creatinine Estim Creat Clear Calc Est GFR (MDRD) Af Amer Est GFR (MDRD) Non-Af BUN/Creatinine Ratio Glucose Lactic Acid 3.4 H Calcium Troponin I 1.800 H* 04/09/18 04/09/18 04/09/18 03:34 05:50 05:50 WBC 47.6 H* RBC 4.11 L Hgb 12.1 L Hct 35.4 L MCV 86.1 MCH 29.4 MCHC 34.2 RDW 14.5 RDW Differential 44.2 H Plt Count 134 L MPV 10.9 Neut % (Auto) Not Reportable Absolute Neuts (auto) 38.1 H Absolute Lymphs (auto) 0.48 L Total Counted 100 Neutrophils % (Manual) 26 L Band Neutrophils % 50 H Lymphocytes % (Manual) 1 L Monocytes % (Manual) 3 Eosinophils % (Manual) 16 H Metamyelocytes % 4 H Diff Path Review Reviewed Platelet Estimate SLT DEC RBC Morphology RARE Anisocytosis 1+ PT INR APTT Sodium 131 L Potassium 4.7 Chloride 99 Carbon Dioxide 23.0 Anion Gap 9 BUN 19 H Creatinine 0.66 L Estim Creat Clear Calc 87.01 Est GFR (MDRD) Af Amer 157 Est GFR (MDRD) Non-Af 130 BUN/Creatinine Ratio 28.8 H Glucose 106 Lactic Acid Calcium 7.4 L Troponin I 1.820 H* 2.210 H* 04/09/18 04/09/18 09:05 09:05 WBC RBC Hgb Hct MCV MCH MCHC RDW RDW Differential Plt Count MPV Neut % (Auto) Absolute Neuts (auto) Absolute Lymphs (auto) Total Counted Neutrophils % (Manual) Band Neutrophils % Lymphocytes % (Manual) Monocytes % (Manual) Eosinophils % (Manual) Metamyelocytes % Diff Path Review Platelet Estimate RBC Morphology Anisocytosis PT INR APTT 36.4 H Sodium Potassium Chloride Carbon Dioxide Anion Gap BUN Creatinine Estim Creat Clear Calc Est GFR (MDRD) Af Amer Est GFR (MDRD) Non-Af BUN/Creatinine Ratio Glucose Lactic Acid Calcium Troponin I 2.370 H* - Other Studies Radiology: [] reviewed Other Studies: [] Route of nutrition/ use of supplements: [] Nutritional Intake: [] IV Site: [] Cheung Catheter: [] - Physical Exam General: Confused HEENT: Atraumatic, PERRLA, EOMI Neck: Supple, No Nodes Lungs: Clear to auscultation, Normal air movement Cardiovascular: Regular rate, Regular Rhythm Abdomen: Soft, Non Tender, Non-Distended Extremities: No edema Skin: No rashes IV Site: Peripheral, without redness Musculoskeletal: No Tenderness to Palpation of Joints or Extremities - Assessment/Plan Antibiotics: [] Assessment/Plan: [] Active and Suspected Problems Metastatic lung cancer (metastasis from lung to other site) (Acute) Lactic acid acidosis (Acute) Abdominal pain (Acute) 50% bandemia raises suspicion for infection, but unclear source, and pt unable to provide much history. Also with lactic acidosis, rising trop, and abnormal LFTs. Meropenem was started. Discussed with Dr. Bell, and plan is for inpatient hospice. Please call if any assistance needed, thank you.
--- NOTE | 2018-04-10 19:13 | PCM.DC.SUM ---
Discharge Date and Diagnosis Date of Admission: 04/08/18 Date of Discharge: 04/09/18 - Primary Discharge Diagnosis #1 acute non-ST elevation FL #2 lactic acidosis secondary to acute non-ST elevation FL #3 leukocytosis secondary to widespread metastatic non-small cell lung cancer #4 liver failure secondary to metastatic non-small cell lung cancer #5 metabolic encephalopathy secondary to metastatic non-small cell lung cancer #6 metastatic non-small cell lung cancer with metastases to the bone, liver, and brain Hospital Course and Treatment Operations: None Procedures: None Summary of Care Provided: The patient is a 62 year old M who was seen in the emergency room at [facility] with chief complaint of generalized weakness and mental confusion. Patient had been diagnosed recently with metastatic non-small cell lung cancer with metastases to the liver, bone, and brain. Workup in the emergency room showed the patient have an elevated white blood cell count, chest x-ray showed evidence of lung cancer but no definite evidence of pneumonia. Patient's labs were abnormal for elevated liver enzymes and an elevated INR, lactic acid was also highly elevated and the patient's sodium was low at 126. Patient was a DNR CC arrest, he was admitted to PCU for generalized debility, cardiac enzyme series was obtained which showed an elevation of troponin starting at 1.82 and peaking at 2.37, he was felt to have had a non-STEMI. Repeat CBC showed continued elevation of the patient's white blood cell count but he remained afebrile. Repeat lactic acid was performed and it was still elevated at 3.4. Patient was seen in consultation by oncology, cardiology, and infectious diseases, cardiology did not recommend any invasive testing due to the patient's widespread metastatic lung cancer, infectious diseases could not confirm that the patient actually had severe sepsis or sepsis, he was given 1 dose of IV antibiotic and oncology talked with family members and the patient's significant other, it was decided that the best course of action was to transfer the patient to inpatient hospice for end-of-life care. Hospice was consulted and saw the patient and agreed to accept the patient in inpatient hospice. On 04/09/18, patient was seen and examined and felt to be in stable condition for transfer to the inpatient hospice facility, prognosis was terminal. Home Medications: Medications to take at Discharge Fluconazole 100 mg PO DAILY 04/08/18 Levetiracetam [Spritam] 1,000 mg PO BID 04/08/18 Morphine Sulfate [Morphine Sulfate ER] 15 mg PO BID 04/08/18 Primary Care Physician: Care Physician,No Primary [Primary Care Provider] - Disposition: Hospice Medical Facility Minutes spent on discharge:: 32 Patient Condition:: Stable Medical Necessity - Tobacco Use Smoking Status: Former smoker Meaningful Use Info Meaningful Use Diagnoses (Choose all that apply): AMI - AMI Aspirin given w/in 24hrs of arrival?: Yes ASA at discharge?: No Reason ASA not ordered:: Allergy - pt hospice Statins at discharge?: No Reason statins not ordered:: Allergy - pt hospice Jeromy/ARB at discharge?: No Reason Jeromy/ARB not ordered:: Not indicated - hospice patient Beta July at discharge?: No Reason Beta July not ordered:: Allergy - pt hospice Done w/ Acute FL measure.: Yes Code Visit Inpatient E&M: 41508 Disch Hosp
--- NOTE | 2018-04-10 19:23 | DS.PCM_ITS ---
Discharge Date and Diagnosis Date of Admission: 04/08/18 Date of Discharge: 04/09/18 - Primary Discharge Diagnosis #1 acute non-ST elevation [place] #2 lactic acidosis secondary to acute non-ST elevation [place] #3 leukocytosis secondary to widespread metastatic non-small cell lung cancer #4 liver failure secondary to metastatic non-small cell lung cancer #5 metabolic encephalopathy secondary to metastatic non-small cell lung cancer #6 metastatic non-small cell lung cancer with metastases to the bone, liver, and brain Hospital Course and Treatment Operations: None Procedures: None Summary of Care Provided: The patient is a 62 year old M who was seen in the emergency room at [facility] with chief complaint of generalized weakness and mental confusion. Patient had been diagnosed recently with metastatic non-small cell lung cancer with metastases to the liver, bone, and brain. Workup in the emergency room showed the patient have an elevated white blood cell count, chest x-ray showed evidence of lung cancer but no definite evidence of pneumonia. Patient's labs were abnormal for elevated liver enzymes and an elevated INR, lactic acid was also highly elevated and the patient's sodium was low at 126. Patient was a DNR CC arrest, he was admitted to PCU for generalized debility, cardiac enzyme series was obtained which showed an elevation of troponin starting at 1.82 and peaking at 2.37, he was felt to have had a non-STEMI. Repeat CBC showed continued elevation of the patient's white blood cell count but he remained afebrile. Repeat lactic acid was performed and it was still elevated at 3.4. Patient was seen in consultation by oncology , cardiology, and infectious diseases, cardiology did not recommend any invasive testing due to the patient's widespread metastatic lung cancer, infectious diseases could not confirm that the patient actually had severe sepsis or sepsis, he was given 1 dose of IV antibiotic and oncology talked with family members and the patient's significant other, it was decided that the best course of action was to transfer the patient to inpatient hospice for end- of-life care. Hospice was consulted and saw the patient and agreed to accept the patient in inpatient hospice. On 04/09/18, patient was seen and examined and felt to be in stable condition for transfer to the inpatient hospice facility, prognosis was terminal. Home Medications: Medications to take at Discharge Fluconazole 100 mg PO DAILY 04/08/18 Levetiracetam [Spritam] 1,000 mg PO BID 04/08/18 Morphine Sulfate [Morphine Sulfate ER] 15 mg PO BID 04/08/18 Primary Care Physician: Care Physician,No Primary [Primary Care Provider] - Disposition: Hospice Medical Facility Minutes spent on discharge:: 32 Patient Condition:: Stable Medical Necessity - Tobacco Use Smoking Status: Former smoker Meaningful Use Info Meaningful Use Diagnoses (Choose all that apply): AMI - AMI Aspirin given w/in 24hrs of arrival?: Yes ASA at discharge?: No Reason ASA not ordered:: Allergy - pt hospice Statins at discharge?: No Reason statins not ordered:: Allergy - pt hospice Jeromy/ARB at discharge?: No Reason Jeromy/ARB not ordered:: Not indicated - hospice patient Beta July at discharge?: No Reason Beta July not ordered:: Allergy - pt hospice Done w/ Acute [place] measure.: Yes Code Visit Inpatient E&M: 68727 Disch Hosp
== END 2018-04-09 15:53 | disposition hospice, inpatient (51) | DRG 280 ==
LOC: ED 19:43 → MS3 21:00 → PCU 04-09 03:07
PROVIDERS: Admitting Provider Internal Medicine; Emergency Provider Emergency Medicine; Visit Provider Internal Medicine
DX: I21.4 Non-ST elevation (NSTEMI) myocardial infarction (principal); G93.41 Metabolic encephalopathy; E43 Unspecified severe protein-calorie malnutrition; E87.2 Acidosis; C34.90 Malignant neoplasm of unspecified part of unspecified bronchus or lung; C78.7 Secondary malignant neoplasm of liver and intrahepatic bile duct; C79.51 Secondary malignant neoplasm of bone; C79.31 Secondary malignant neoplasm of brain; Z68.1 Body mass index [BMI] 19.9 or less, adult; E87.1 Hypo-osmolality and hyponatremia; K72.90 Hepatic failure, unspecified without coma; E86.0 Dehydration; I10 Essential (primary) hypertension; E78.5 Hyperlipidemia, unspecified; Z87.891 Personal history of nicotine dependence; Z79.899 Other long term (current) drug therapy
CPT/HCPCS: 36415; 71045; 74176; 80048; 80053; 83605; 83690; 84484; 85025; 85610; 85730; 87040; 87086; 93005; 93306; 97802; 99285; J2185; J7030; A4216